=== PATIENT | female | born 1945 | race Caucasian/White ===

== ENCOUNTER 2023-09-19 08:52 | Day surgery (SDC) | payer MEDICARE, BC, SELFPAY ==
[2023-09-19 10:41] VITALS: BMI 21.5
--- NOTE | 2023-09-19 11:45 | ITS.CL.CARDI ---
Gaggerman - Cardioversion
Cardioversion
Procedure Report:
Electrophysiology procedure report
Date: September 19, 2023
History: 78-year-old female with recent sudden cardiac status post dual-chamber defibrillator placed at our [facility] in [place]. She presents with recurrent atrial fibrillation for attempted cardioversion. We asked her to stop
her digoxin yesterday. She has ongoing fatigue.
Procedure report:
The device was interrogated baseline demonstrating atrial fibrillation and after informed consent and patient safety timeout the patient was sedated by the anesthesiology service. A 200 J synchronized shock restored sinus rhythm for a few seconds
with recurrence of atrial fibrillation with a subsequent 300 J shock and another 3 J shock transiently restoring sinus rhythm and atrial pacing with recurrence of atrial fibrillation. As such we cannot interrogate the atrial lead for atrial
capture. With transient zoroastrianism of sinus rhythm with recurrence of atrial fibrillation no further cardioversions were attempted. The patient will be sent home in atrial fibrillation and we will stop her digoxin and Cardizem to see if this can
improve her fatigue.
Recommendations:
I would like to see her in early to mid September prior to her travel. If she has ongoing CHF or dyspnea symptoms we may need to consider the addition of POND TENDER whether that be via coronary sinus or left on a branch area pacing. That and medical rate
control or ablation of the AV node to control heart rates would be ancillary possibilities depending on clinical course. I discussed this with her daughter who is in agreement with plan.
== END 2023-09-19 12:00 | disposition home or self-care (01) ==
LOC: CATH 08:52
PROVIDERS: ATTENDING PHYSICIAN Internal Medicine Cardiovascular Disease; FAMILY PHYSICIAN Emergency Medicine
DX: I48.0 Paroxysmal atrial fibrillation (principal); R53.83 Other fatigue; I10 Essential (primary) hypertension; E78.5 Hyperlipidemia, unspecified; Z95.810 Presence of automatic (implantable) cardiac defibrillator; Z79.01 Long term (current) use of anticoagulants
CPT/HCPCS: 92960; 93005

== ENCOUNTER 2023-11-11 13:28 | Emergency (ER) | payer MEDICARE, BC, SELFPAY ==
[2023-11-11 13:36] VITALS: BP 143/93
[2023-11-11 14:17] VITALS: BP 138/90
--- NOTE | 2023-11-11 14:23 | ED.GENMED ---
History of Present Illness
General
Chief Complaint: Abdominal Symptoms
Source: patient
Exam Limitations: none
Time Seen by Provider: 11/11/23 14:11
History of Present Illness
History of Present Illness:
See MDM
Past History
Past History
ED Past Medical History: Arrthythmia (afib on Eliquis, Tikosyn and Toprol), Cancer (melanoma), HTN, Hypercholesterolemia, Psychiatric (A/D) and Other (kidney stones, OA, Gout)
ED Past Surgical History: Cardiac
Social History
Tobacco: Non-smoker
Phy Exam
Physical Exam
Physical Exam:
See MDM
Course
Orders/Labs/Results
Orders:
Orders
11/11/23 13:31
EKG [Electrocardiogram (*1)] Urgent
Reason for Study: Bradycardia / Tachycardia
EKG- Treatment ONCE
11/11/23 13:43
EKG [Electrocardiogram (*1)] Urgent
Reason for Study: Shortness of Breath
EKG- Treatment ONCE
11/11/23 14:22
Lorazepam [Ativan] 0.5 mg IV NOW STA
CR Chest - 2 Views Urgent
Comment:
Reason For Exam: SOB
11/11/23 14:36
Complete Blood Count/With Diff Urgent
Comprehensive Metabolic Panel Urgent
NT-proBNP Urgent
Troponin I Urgent
Abnormal Lab Results
11/11/23
14:36
RBC 4.15 L 10^6/uL
(4.20-5.40)
MCH 33.0 H pg
(27.0-31.0)
RDW 15.4 H %
(11.5-14.5)
Absolute Lymphs (auto) 0.8 L 10^3/uL
(1.2-3.4)
Neutrophils % 81.3 H %
(42.2-75.2)
Lymphocytes % 11.2 L %
(20.5-51.1)
Sodium 134 L mmol/L
(135-145)
BUN 23 H mg/dl
(7-17)
Glucose 124 H mg/dl
(70-99)
11/11/23 14:36
11/11/23 14:36
Vital Signs
Initial and Last Documented VS:
Initial Vital Signs
Temp Pulse Resp BP Pulse Ox
97.8 F 106 18 143/93 97
11/11/23 13:36 11/11/23 13:36 11/11/23 13:36 11/11/23 13:36 11/11/23 13:36
Last Documented Vital Signs
Temp Pulse Resp BP Pulse Ox
97.8 F 85 15 108/76 99
11/11/23 13:36 11/11/23 15:30 11/11/23 15:30 11/11/23 15:00 11/11/23 15:30
MDM/Problems Addressed
Differential Diagnosis Includes:
HPI and MDM Narrative:
78-year-old female presenting with multiple complaints. She complains of nausea, weight loss, depression, insomnia and not eating. Patient acknowledges that she feels depressed. She is dealing with the recent loss of her daughter and her
's medical conditions. She has not been able to sleep because her 'mind will not turn off'. She does complain of mild shortness of breath but denies any cough. Symptoms or not worse when she exerts herself or lays flat. We discussed her
chronic A-fib. Patient does acknowledge that she believes a lot of her symptoms could be A-fib related. She failed a cardioversion 2 months ago and has since been off of her digoxin and Cardizem. She is scheduled for an ablation in 10 days.
We had a long discussion in regards to her mental health. She does acknowledge that a lot of her symptoms are likely related to depression based on her current family issues. We discussed the likely negative workup and patient does acknowledge
this. Will give dose of Ativan. Patient indicates that a lot of her issues are related to not sleeping and is interested in refilling her Ambien prescription
Physical exam
General: Well appearing and non-toxic
HEENT: protecting airway
Neck: appears supple
CV: No evidence of cyanosis. Regular rate, irregular rhythm
Resp: No accessory muscle use. Lungs clear
Abd: Non-distended
Extremities: No deformities. No leg edema
Neuro: alert
Psych: Mild depressed affect
Skin: Intact
Problems Addressed including Acute and Chronic Conditions affecting care:
1. Shortness of breath
Acuity: acute
Prognosis: stable
Details: Likely in setting of A-fib. Will obtain chest x-ray
2. Insomnia
Acuity: acute
Prognosis: stable
Details: Likely related to her ongoing depression. Will consider filling her Ambien prescription since she has tolerated it well in the past
3. Depression
Acuity: acute
Prognosis: stable
Details: Will give dose of Ativan
Updates
Chest x-ray clear. Patient has elevated BNP but no evidence of congestive heart failure. She is feeling better after Ativan even laying flat. Shortness of breath has resolved. Upon further questioning, her Celexa and clonazepam were discontinued
appropriately due to medication side effects. We discussed having this discussion with the primary care doctor since she is now off digoxin and Cardizem.
Differential Diagnosis (but not limited to): Symptomatic A-fib, pneumonia, depression
Testing considered: D-dimer but she is compliant with Eliquis
Drug therapy (if applicable): OTC meds, please see d/c instruction regarding Rx drugs
Amount and/or Complexity of Data Reviewed
Clinical info obtained from: Patient
External data reviewed: Patient had a cardioversion in August which had only a transient episode of sinus rhythm. She quickly went back to A-fib because of this, patient is not a great cardioversion candidate
Labs I independently reviewed (but not limited to): Elevated BNP
Radiology: X-ray independently reviewed: Chest x-ray shows unchanged cardiomegaly. No pulmonary edema or pneumonia
Pulse Ox: not hypoxic
EKG independently reviewed: A-fib, left axis, no STEMI
Order Filler: rate controlled A-fib
Critical Care: N/A
Risk of Complication:
Social Determinants of health: Good social support
Discussed with other providers: N/A
Escalation of Care includes Admit/Obs: After being observed in the Emergency Department, pt stable for discharge.
Occasional wrong word or 'sound a like' substitutions may have occurred due to the inherent limitations of voice recognition software. Read the chart carefully and recognize, using context, where substitutions have occurred.
*Critical Care Note
Total Time (30-74mins, 75-104mins- exclusive of procedures): Not Applicable
ED Attending Note
-
Portions of this chart may have been created with voice recognition software.� Occasional wrong word or��sound alike� substitutions may have occurred due to the inherent limitations of voice recognition software.
Discharge Plan
Departure
Patient Disposition: Home (Routine Discharge)
Date of Disposition: 11/11/23
Time of Disposition: 15:49
Patient with high blood pressure during this ER visit?: No
Discharge Problem:
Acute dyspnea, Insomnia
Instructions: Insomnia
Prescriptions:
New
lorazepam [Ativan] 1 mg tablet
1 mg PO DAILY PRN (Reason: anxiety) Qty: 7 0RF
zolpidem [Ambien] 5 mg tablet
5 mg PO HS PRN (Reason: insomnia) Qty: 10 0RF
No Action
zolpidem 5 MG tablet
5 mg PO HSPRN PRN (Reason: sleep)
Eliquis 5 MG tablet
5 mg PO BID
metoprolol succinate [Toprol XL] 25 MG tablet extended release 24 hr
25 mg PO DAILY
pitavastatin calcium [Livalo] 2 MG tablet
2 mg PO HS
Patient Comments:
pt takes around 0200
valsartan 80 MG tablet
160 mg PO DAILY
cholecalciferol (vitamin D3) [Vitamin D3] 1,000 UNIT capsule
1,000 unit PO DAILY
digoxin 125 mcg (0.125 mg) Tablet
125 mcg PO DAILY
amiodarone 200 mg Tablet
200 mg PO DAILY
meclizine 25 mg Tablet
25 mg PO TID PRN (Reason: dizziness)
sennosides-docusate sodium 8.6-50 mg Tablet
1 tab-cap PO HS PRN (Reason: constipation)
Referrals:
Nkechi Quispe DO [Family Provider] -
Activity Restrictions/Additional Instructions:
Please return for any worsening symptoms.
You may return at any time if you have further concerns.
Please follow up with your doctor at the first available appointment, preferably this week.
Thank you for choosing [facility].
Interventions
Interventions:
*Risk Screen - Suicide Last Done: 11/11/23 14:15
*General Assessment Last Done: 11/11/23 14:20
*Neglect/Abuse Screening Last Done: 11/11/23 14:15
ED- Fall Risk Assessment Last Done: 11/11/23 14:19
*ED COVID-19 Vaccine History Last Done: 11/11/23 13:36
LE-Vbahzr-Nymiznfjwh Assessment Last Done: 11/11/23 14:19
Discharge Date and Time
Print Language: SLOVENIAN
[2023-11-11] MEDS: ATIVAN 0.5 MG IV (14:37)
[2023-11-11 14:46] LABS: % Basophils 0.3 % (0-2); % Eosinophils 0.1 % (0-6); % Immature Granulocytes 0.1 % (0-0.5); % Lymphocytes 11.2 % (20.5-51.1); % Neutrophils 81.3 % (42.2-75.2); Absolute Lymphocytes 0.8 10^3/uL (1.2-3.4); Absolute Monocytes 0.5 10^3/uL (0.1-0.6); Hematocrit 38.9 % (37.0-47.0); Hemoglobin 13.7 g/dL (12.0-16.0); Mean Corp Hgb Conc. 35.2 g/dL (33.0-37.0); Mean Corpuscular Volume 93.7 fL (81.0-99.0); Mean Platelet Volume 9.6 fL (7.4-10.4); Nucleated Red Blood Cells % 0 %; Platelet Count 187 10^3/uL (130-400); Red Blood Cell Count 4.15 10^6/uL (4.20-5.40); Red Cell Dist. Width 15.4 % (11.5-14.5); White Blood Cell Count 7.4 10^3/uL (4.8-10.8)
[2023-11-11 14:58] VITALS: BP 127/88
[2023-11-11 15:00] VITALS: BP 108/76
[2023-11-11 15:00] LABS: ALT (SGPT) 31 U/L (0-35); AST (SGOT) 33 U/L (14-36); Albumin 4.5 g/dl (3.5-5.0); Alkaline Phosphatase 40 U/L (38-126); Blood Urea Nitrogen 23 mg/dl (7-17); Calcium 10.2 mg/dl (8.4-10.2); Carbon Dioxide 26 mmol/L (22-30); Chloride 101 mmol/L (98-107); Glucose 124 mg/dl (70-99); Potassium 4.9 mmol/L (3.5-5.1); Sodium 134 mmol/L (135-145); Total Bilirubin 0.9 mg/dl (0.2-1.3); Total Protein 6.5 g/dl (6.3-8.2); eGFR > 60.00
[2023-11-11 15:10] LABS: NT-proBNP 5640 pg/ml; Troponin I < 0.012 ng/ml
== END 2023-11-11 16:06 | disposition home or self-care (01) ==
LOC: EMR 13:28
PROVIDERS: EMERGENCY PHYSICIAN Student in an Organized Health Care Education/Training Program; FAMILY PHYSICIAN Emergency Medicine
DX: R06.09 Other forms of dyspnea (principal); G47.00 Insomnia, unspecified; Z63.4 Disappearance and death of family member
CPT/HCPCS: 99285; 96374; 71046; 80053; 83880; 84484; 85025; 93005

== ENCOUNTER 2023-11-21 05:53 | Day surgery (SDC) | payer MEDICARE, BC, SELFPAY ==
[2023-11-21] VITALS (13 sets, daily range): BP systolic 127–154; BP diastolic 83–119; BMI 19.7
--- NOTE | 2023-11-21 09:19 | ITS.CL.ABL ---
Tool Die Maker - Ablation
Ablation
Procedure Report:
ELECTROPHYSIOLOGY ABLATION REPORT
�
Date of procedure: November 21, 2023
�
Referring: Dr. Alexander Sterling
�
INDICATION: Atrial fibrillation with rapid ventricular response
�
HISTORY:
Status post secondary prevention defibrillator with ejection fraction less than 50% and nonischemic cardiomyopathy. Atrial fibrillation refractory to medical rate control with digoxin Lopressor and diltiazem. Presents for AV junction ablation.
�
'TIME-OUT':� called and� confirmed.
�
SEDATION/ANESTHESIA:�
�
PROCEDURE:
(1) The dual-chamber ICD was interrogated and reprogrammed to VVI@60 ppm.�� Detection was programmed off.
(2) under ultrasound guidance the right femoral vein was accessed via Seldinger technique and an 8 Icelandic short sheath was placed in the right femoral vein. A deflectable-tip
mapping/ablation catheter was advanced to the medial tricuspid annulus region where a� HIS potential identified.� The catheter was slightly withdrawn from this location to a site more proximal, about nursing home between the HIS recording position and
that of the coronary sinus os.� At this location, a small HIS potential was evident along with large amplitude atrial deflections and a relatively small ventricular electrogram.��
Radiofrequency energy was applied at this site using a temperature-controlledsystem.� For seconds after the onset of power delivery, an accelerated junctional rhythm occurred followed by deceleration and heart block.� This RF application (max power
set: 70 W, Max temperature set: 60 degrees was continued for 15-20 seconds lesions with multiple lesions given..� At the conclusion of this, no escape rhythm was present.
(3) The dual-chamber Medtronic ICD was interrogated and found to have stable function compared to the pre-ablation findings.��
Device: Dual-chamber Medtronic ICD
RA: In atrial fibrillation
RV: 663 ohms, 5.4 mV sensing, 1.25@0.5 ms capture threshold
Pacing reprogrammed to VVIR@80-120 ppm.��
Detection was reprogrammed ON.
�
COMPLICATIONS: None
�
SUMMARY: Status post successful AVJ ablation with reprogramming of the device to VVIR 80 to 120 bpm
�
RECOMMENDATIONS:
1. Discontinue diltiazem and digoxin. Lower metoprolol to 12.5 mg daily as the patient is having significant depression symptoms
2. Out of bed in 3 to 4 hours and same-day discharge
�
Copy to: Dr. Alexander Sterling
== END 2023-11-21 13:27 | disposition home or self-care (01) ==
LOC: CATH 05:53
PROVIDERS: ATTENDING PHYSICIAN Internal Medicine Cardiovascular Disease; FAMILY PHYSICIAN Emergency Medicine
DX: I48.0 Paroxysmal atrial fibrillation (principal); I45.81 Long QT syndrome; Z88.5 Allergy status to narcotic agent; Z79.01 Long term (current) use of anticoagulants; I10 Essential (primary) hypertension
CPT/HCPCS: C1733; 76937; 93005; 93650

== ENCOUNTER → 2024-02-08 11:33 | Outpatient (REF) | payer MEDICARE, BC, SELFPAY | LOC: RCS 11:33 | PROVIDERS: ATTENDING PHYSICIAN Nurse Practitioner; REFERRING PHYSICIAN Internal Medicine Cardiovascular Disease | DX: I48.0 Paroxysmal atrial fibrillation (principal) | CPT/HCPCS: 93306 ==

== ENCOUNTER 2024-03-12 13:59 | Inpatient (IN) | payer MEDICARE, BC, SELFPAY ==
[2024-03-12] VITALS (14 sets, daily range): BP systolic 136–160; BP diastolic 73–90; O2SAT 96; BMI 38.9
[2024-03-12 11:03] LABS: Hematocrit 35.7 % (37.0-47.0); Hemoglobin 12.3 g/dL (12.0-16.0); Mean Corp Hgb Conc. 34.5 g/dL (33.0-37.0); Mean Corpuscular Hgb 34.6 pg (27.0-31.0); Mean Corpuscular Volume 100.6 fL (81.0-99.0); Platelet Count 193 10^3/uL (130-400); Red Blood Cell Count 3.55 10^6/uL (4.20-5.40); White Blood Cell Count 6.9 10^3/uL (4.8-10.8)
[2024-03-12 11:54] LABS: ALT (SGPT) 30 U/L (0-35); AST (SGOT) 30 U/L (14-36); Albumin 4.3 g/dl (3.5-5.0); Alkaline Phosphatase 54 U/L (38-126); Blood Urea Nitrogen 21 mg/dl (7-17); Calcium 9.3 mg/dl (8.4-10.2); Carbon Dioxide 31 mmol/L (22-30); Chloride 101 mmol/L (98-107); Glucose 92 mg/dl (70-99); Potassium 3.2 mmol/L (3.5-5.1); Sodium 144 mmol/L (135-145); Total Bilirubin 1.1 mg/dl (0.2-1.3); Total Protein 6.5 g/dl (6.3-8.2); eGFR > 60.00
--- NOTE | 2024-03-12 11:59 | W.ICD.CONTRA ---
Post ICD/HYPERBARIC WELDER DIVER-D
-
History of MA?: No
LV Function
Left ventricular function study result?: Ejection Fraction </= 35%
ACEI/ARB/ARNI
Patient already on ACEI/ARB/ARNI: Yes
Beta-Roxann
Patient already on Beta Roxann: Yes
--- NOTE | 2024-03-12 15:44 | ITS.CL.ICD ---
Coordinator Integrated Marketing - ICD
Implantable Cardioverter Defibrillator
Procedure Report:
Date of Procedure: March 12, 2024
Patient : 1945
Procedures: New LV lead insertion and upgrade to BiV ICD with removal of dual-chamber ICD generator
Indication: 1) Class III CHF, LVEF 20-25%, 2) left bundle Branch Block and now paced QRS 186 ms
�
Implants:
Pulse Generator: Med[employer]ara; Model# [id number]; Serial#�[id number] implanted today
Atrial Lead: Medtronic: Model# [id number]; Serial# [id number] implanted May 2023
Right Ventricular Lead: Medtronic; Model# [id number]; Serial# [id number] implanted May 2023
Left Ventricular Lead: Medtronic; Model# [id number]; Serial# [id number] implanted today
�
Explants
Explanted generator: [employer] product number DD PA 2 D4 serial number [id number] as implanted May 2023:
�
Technique: The patient was prepped and draped in the usual fashion. Local anesthetic was applied to the left prepectoral subcutaneous tissue. A 4 inch incision was made. The left axillary vein was accessed��without difficulty. The chronic generator
was submuscular in the axilla and prior to procedure the patient remarked that the generator was in an acceptable position. Once the chronic incision was opens blunt dissection through the pectoral muscle belly into the pocket was performed without
significant bleeding. Hemostasis was excellent. The leads were introduced with hemostatic peel away introducer sheaths. The coronary sinus was accessed with the aid of the Attain system. The left ventricular lead was placed in the mid to high
lateral position somewhat basally as there was no other significant venous vessel draining the left ventricular cavity. 10 volt pacing did not capture the diaphragm. The leads were secured to the pectoralis muscle and fascia. The leads were
appropriately attached to the device. The pocket was irrigated with antibiotic solution. The device and leads were placed in the pocket and the device was secured to pectoralis muscle and facia. The incision was closed with absorbable sutures. The
estimated blood loss was minimal. There were no complications. Device based testing was performed as described below. IV contrast total: 20 cc.
�
System Analysis:
RA lead: P: 0.5 mV; Threshold: AF
RV lead: R: 9 mV; Threshold: 1.3 V @ 0.5 ms; Impedance: 285 ohms.
LV lead: R: 8 mV; Threshold: 0.75 V @ 0.5 ms in LV 1 to RV coil configuration; Impedance: 570 ohms
�
Final Programming: Tachy: VT/VF:188; Frank: DDDR 60-120.
�
Conclusion: Uncomplicated Biventricular ICD implant upgrade.
�
Recommendation: Routine post BiV ICD care.
�
cc: Dr. Alexander Sterling
�
--- NOTE | 2024-03-12 15:55 | CM ---
Reviewed chart. Met with Mrs. Lovelace to review discharge plans. She states prior to admission she resides alone in a spilt-level home with two steps to enter. She states she has six steps to get to each level. She states she has a stair glide
to use if needed. She states she has a prescription plan and uses [facility]. The discharge plan is to return home when medically stable.
--- NOTE | 2024-03-12 17:36 | PTCARENOTE ---
Pt received post procedure at 1540. Pt alert and oriented with no c/o of any pain or discomfort. Room air 96%. Left chest aqucell dressing intact with no hematoma or ecchymosis.
[2024-03-12] MEDS: TYLENOL 650 MG PO ×2 (18:19→22:36)
[2024-03-12] MEDS: ANCEF 5 IV (19:42)
--- NOTE | 2024-03-12 19:50 | PTCARENOTE ---
Assumed pt care. Walking rounds completed with previous RN. Pt AAO x 4, reports mild SAMARA discomfort at time of assessment - alleviated with PRN Tylenol & repositioning. Pt on RA, POX 98%, posterior BS clear/equal, denies SOB. Pt v-paced on monitor,
HR in 70's, heart tones normal, distal pulses +2 B/L. No edema noted. Up ad trudy with stand-by assistance. Good appetite - ate 100% of dinner. Voiding without issue. SAMARA Aquacel Ag dressing CDI without drainage. L arm immobilizer remains in place,
arm supported with pillow. See JUN.
[2024-03-12] MEDS: DIOVAN 160 MG PO (21:06)
[2024-03-12] MEDS: TOPROL XL 12.5 MG PO (21:07)
[2024-03-12] MEDS: LIPITOR 10 MG PO (21:07)
[2024-03-12] MEDS: PACERONE 100 MG PO (21:07)
[2024-03-12] MEDS: AMBIEN 5 MG PO (21:27)
--- NOTE | 2024-03-12 22:56 | PTCARENOTE ---
Pt requested PRN sleeping aide that she takes at home. PA made aware. Administered as ordered. Pt stating 3-08/07 SAMARA/Shoulder discomfort - arm immobilizer maintained & arm positioned for comfort - PRN Tylenol administered. VSS. No other changes.
[2024-03-13 03:11] VITALS: BP 154/93
[2024-03-13] MEDS: ANCEF 5 IV (03:25)
[2024-03-13] MEDS: TYLENOL 650 MG PO ×2 (03:25→07:44)
--- NOTE | 2024-03-13 03:33 | PTCARENOTE ---
Pt sleeping throughout night. VS obtained. Labs drawn & sent. EKG performed as ordered. Pt ambulated to BR - voided x 1. Reported 4/10 L shoulder pain - PRN Tylenol administered as ordered. Positioned for comfort with pillow supporting LUE. No other
changes.
[2024-03-13 03:43] LABS: Hematocrit 34.6 % (37.0-47.0); Hemoglobin 11.7 g/dL (12.0-16.0); Mean Corp Hgb Conc. 33.8 g/dL (33.0-37.0); Mean Corpuscular Hgb 35.1 pg (27.0-31.0); Mean Corpuscular Volume 103.9 fL (81.0-99.0); Mean Platelet Volume 10.4 fL (7.4-10.4); Platelet Count 168 10^3/uL (130-400); Red Blood Cell Count 3.33 10^6/uL (4.20-5.40); Red Cell Dist. Width 14.1 % (11.5-14.5); White Blood Cell Count 8.6 10^3/uL (4.8-10.8)
[2024-03-13 04:01] LABS: Blood Urea Nitrogen 22 mg/dl (7-17); Calcium 9.3 mg/dl (8.4-10.2); Carbon Dioxide 25 mmol/L (22-30); Chloride 104 mmol/L (98-107); Estimated Creatinine Clearance 68 ml/min; Glucose 111 mg/dl (70-99); Magnesium 2.1 mg/dl (1.6-2.3); Potassium 4.1 mmol/L (3.5-5.1); Sodium 142 mmol/L (135-145); eGFR > 60.00
[2024-03-13 07:42] VITALS: BP 148/86
[2024-03-13] MEDS: ALDACTONE 12.5 MG PO (07:44)
[2024-03-13 08:32] VITALS: BMI 38.9
--- NOTE | 2024-03-13 09:36 | W.PN.CARDCBS ---
Addendum entered and electronically signed by Alexander Sterling MD 03/13/24 09:58:
Patient seen and examined
Having some pain at the device site
No hematoma
Appropriate BiV pacing on telemetry
Chest x-ray reviewed without pneumothorax and stable LV lead position
Exam:
As per WIGS SALESPERSON note
Device site without hematoma but slightly tender mostly at the submuscular device pocket without swelling
Impression:
Chronic HFrEF 20-25%
NICMP
post BiV ICD upgrade 03/12/24
Afib prior PVI 2020
AVJ ablation 10/2023
Hypokalemia
HTN
HLD
LBBB/LAFB
LA thrombus
Cardiac arrest secondary to prolonged QTCS post ICD 09/2023
Plan:
post BiV upgrade
site stable, moderate incisional pain, will add tylenol #3 (tolerated in past)
CXR no PTX
tele Vpaced
HF continue Toprol, valsartan, and lasix add spironolactone
K 3.2 pre procedure, repleted, K 4.1 this am
will check BMP in 1 week with addition of spironolactone
Afib continue amiodarone, resume Eliquis in am Sunday
Activity restrictions reviewed
CM c/s for VNA lives alone
Incision check 1 week
stable for d/c home today
Original Note:
Today's Communication / Plan
-
post BiV ICD upgrade
pain control
continue GDMT for HF
OAC in am
home today
Impression / Plan
-
PCP: Dr. Quispe
CDY: Dr. Sterling
Impression:
Chronic HFrEF 20-25%
NICMP
post BiV ICD upgrade 03/12/24
Afib prior PVI 2020
AVJ ablation 10/2023
Hypokalemia
HTN
HLD
LBBB/LAFB
LA thrombus
Cardiac arrest secondary to prolonged QTCS post ICD 09/2023
Plan:
post BiV upgrade
site stable, moderate incisional pain, will add tylenol #3 (tolerated in past)
CXR no PTX
tele Vpaced
HF continue Toprol, valsartan, and lasix add spironolactone
K 3.2 pre procedure, repleted, K 4.1 this am
will check BMP in 1 week with addition of spironolactone
Afib continue amiodarone, resume Eliquis in am Sunday
Activity restrictions reviewed
CM c/s for VNA lives alone
Incision check 1 week
stable for d/c home today
Progress Note - Colliery Clerk
Subjective
Date of Service: March 13, 2024
moderate incisional pain, no cp, sob
Objective
Labs:
03/13/24 03:21
03/13/24 03:21
Labs
Hgb 11.7 g/dL (12.0-16.0) L 03/13/24 03:21
Hct 34.6 % (37.0-47.0) L 03/13/24 03:21
Plt Count 168 10^3/uL (130-400) 03/13/24 03:21
Sodium 142 mmol/L (135-145) 03/13/24 03:21
Potassium 4.1 mmol/L (3.5-5.1) D 03/13/24 03:21
BUN 22 mg/dl (7-17) H 03/13/24 03:21
Creatinine 0.8 mg/dL (0.6-1.0) 03/13/24 03:21
Glucose 111 mg/dl (70-99) H 03/13/24 03:21
Vital Signs and I&O:
Vital Signs
Temp Pulse Resp BP Pulse Ox
97.9 F 70 16 148/86 95
03/13/24 07:42 03/13/24 07:42 03/13/24 07:42 03/13/24 07:42 03/13/24 07:50
Vital Signs
Temp Pulse Resp BP Pulse Ox
97.9 F 70 16 148/86 95
03/13/24 07:42 03/13/24 07:42 03/13/24 07:42 03/13/24 07:42 03/13/24 07:50
Intake & Output
03/11/24 03/12/24 03/13/24 03/14/24
06:59 06:59 06:59 06:59
Intake Total 800 / 800
Balance 800 / 800
Physical Exam
Physical Exam
NAD< AOX3
S1, S2, irreg
CTAB, non labored
SNTND bsx4
L CW Dressing c/d/i no HT
[2024-03-13] MEDS: TYLENOL #3 1 TABLET PO (09:41)
[2024-03-13 10:53] VITALS: BP 136/76
--- NOTE | 2024-03-13 11:25 | CM ---
Reviewed chart. Received consult for VNA. Met with Mrs. Lovelace to review discharge plans. Reviewed [facility] Services with her. She is agreeable to [facility] Services. [facility]. Sent the referral. Prior to
admission she resides alone in a spilt level home with two steps to enter. She has six steps to get to each level. She has a stair glide to use if needed. She has a prescription plan and uses [facility]. Medical work-up in progress. The
discharge plan is [facility] when medically stable.
--- NOTE | 2024-03-13 11:33 | W.DS.TRANS ---
DC Summary - Sales Ledger Administrator
-
Discharge Instructions:
Sleep Apnea Risk Intermediate
Discharge Diagnosis/Procedures Bi-V ICD upgrade
Diet Low Cholesterol,2 Gram Sodium
Driving Restrictions No driving for 1 week
Bathing Restrictions OK to Shower
Blood Work Check BMP in 1 week
Instructions:
Stand-Alone Forms: DC Inst - Implanted Device
Changes to Home Medications: Yes
Discharge Medications:
DC Medications w/original date entered in [employer]
apixaban 5 mg tablet (Eliquis) 5 mg PO BID Blood clot prevention/tx 07/08/19
pitavastatin calcium 2 mg tablet (Livalo) 2 mg PO HS High cholesterol 07/08/19
zolpidem 5 mg tablet 5 mg PO HSPRN PRN sleep 07/08/19
cholecalciferol (vitamin D3) 25 mcg (1,000 unit) capsule (Vitamin D3) 1,000 unit PO HS Supplement 11/08/20
valsartan 80 mg tablet 160 mg PO HS Blood Pressure 11/08/20
amiodarone 200 mg tablet 100 mg PO HS Heart Disease/Condition 09/19/23
meclizine 25 mg tablet 25 mg PO TID PRN dizziness 09/19/23
sennosides 8.6 mg-docusate sodium 50 mg tablet 1 tab-cap PO HS PRN constipation 09/19/23
metoprolol succinate 25 mg tablet,extended release 24 hr (Toprol XL) 12.5 mg (1/2 x 25 mg) PO HS Heart disease/condition #0 tabs 11/21/23
furosemide 40 mg tablet 40 mg PO BID Fluid Retention/Swelling 03/12/24
zolpidem 5 mg tablet (Ambien) 5 mg PO HS PRN sleep 03/12/24
spironolactone 25 mg tablet 12.5 mg (1/2 x 25 mg) PO DAILY #90 tabs 03/13/24
Home Medication Changes
new to spironolactone
Pending Results: No
--- NOTE | 2024-03-13 12:13 | PTCARENOTE ---
Discharged to home.
== END 2024-03-13 12:15 | disposition home health service (06) | DRG 277 ==
LOC: IVU 13:59
PROVIDERS: Nurse Practitioner Adult Health; ADMITTING PHYSICIAN Internal Medicine Cardiovascular Disease; FAMILY PHYSICIAN Emergency Medicine
PROC: 0JH609Z Insertion of Cardiac Resynchronization Defibrillator Pulse Generator into Chest Subcutaneous Tissue and Fascia, Open Approach (ICD-10-PCS; 2024-03-12)
PROC: 02HL3KZ Insertion of Defibrillator Lead into Left Ventricle, Percutaneous Approach (ICD-10-PCS; 2024-03-12)
PROC: 0JPT0PZ Removal of Cardiac Rhythm Related Device from Trunk Subcutaneous Tissue and Fascia, Open Approach (ICD-10-PCS; 2024-03-12)
DX: I11.0 Hypertensive heart disease with heart failure (principal); I42.8 Other cardiomyopathies; I50.22 Chronic systolic (congestive) heart failure; I48.91 Unspecified atrial fibrillation; I34.1 Nonrheumatic mitral (valve) prolapse; F32.9 Major depressive disorder, single episode, unspecified; F41.9 Anxiety disorder, unspecified; E87.6 Hypokalemia; E78.5 Hyperlipidemia, unspecified; I44.7 Left bundle-branch block, unspecified; Z88.5 Allergy status to narcotic agent; Z79.01 Long term (current) use of anticoagulants; Z79.899 Other long term (current) drug therapy; Z86.74 Personal history of sudden cardiac arrest
CPT/HCPCS: 33225; 33264; 71045; 80048; 80053; 83735; 85027; 93005; C1730; C1769; C1892; Q9967

== ENCOUNTER → 2025-02-17 13:58 | Outpatient (REF) | payer MEDICARE, BC, SELFPAY | LOC: RCS 13:58 | PROVIDERS: ATTENDING PHYSICIAN Nurse Practitioner; FAMILY PHYSICIAN Emergency Medicine | DX: I48.19 Other persistent atrial fibrillation (principal) | CPT/HCPCS: 93306 ==